=== PATIENT | male | born 1985 | race Caucasian/White ===

== ENCOUNTER 2024-03-26 08:22 | Emergency (ER) | payer SELFPAY ==
[~2024-03-26] VITALS: Ht 172.7 cm; Wt 74.8 kg
[2024-03-26 08:27] VITALS: BP_SYST 145; PULSE 80; RESP 20; TEMP 97.5; O2SAT 97
[2024-03-26] MEDS: LORazepam 1 MG TABLET PO ONE ×2 (09:02→11:19)
[2024-03-26] MEDS ORDERED: LORA-259 PO (09:40)
[2024-03-26 10:38] VITALS: BP_SYST 147; PULSE 92; RESP 20; TEMP 97; O2SAT 97
== END 2024-03-26 12:26 | disposition home or self-care (01) ==
LOC: SED 08:22
DX: F10.129 Alcohol abuse with intoxication, unspecified (principal); Z79.899 Other long term (current) drug therapy; Y90.9 Presence of alcohol in blood, level not specified
CPT/HCPCS: 99283